=== PATIENT | female | born 2000 | race African-American/Black ===

== ENCOUNTER 2025-02-18 18:13 | Emergency (ER) | payer OTHER, SELFPAY ==
[2025-02-18 18:12] VITALS: BP 130/83; PULSE 77; RESP 20; TEMP 36.7; O2SAT 98
--- NOTE | 2025-02-18 18:15 | DI.CT_ITS ---
Exam(s) CT HEAD WO EXAM: CT HEAD WO CLINICAL HISTORY: Seizure. TECHNIQUE: Imaging Protocol: Axial computed tomography images with coronal and sagittal reformatted images were created and reviewed COMPARISON: No exams were available for comparison FINDINGS: Ventricles and Extra axial spaces: Normal in size and morphology for the patient's age. Hemorrhage: None. Cerebral parenchyma: No evidence of acute infarct or mass. Midline shift: None. Brainstem/Cerebellum: Normal. Calvarium: Normal. Visualized Paranasal sinuses:Clear. Mastoids: Clear. Soft Tissues: Unremarkable. ORBITS: Unremarkable. PITUITARY: Not enlarged. IMPRESSION: No acute intracranial process. RADIATION DOSE DELIVERED: 846.83mGy.cm Total DLP DATA REPOSITORY: All CT scans at this facility are submitted to the National Radiology Data Registry (NRDR) Dose Index Registry (DIR) with the [employer] (ACR). RADIATION OPTIMIZATION: All CT scans at this facility use at least one of these dose optimization te chniques: automated exposure control; mA and/or kV adjustment per patient size (includes targeted exa ms where dose is matched to clinical indication); or iterative reconstruction.
--- NOTE | 2025-02-18 18:15 | DI.RAD_ITS ---
Exam(s) XR CHEST 2V PA LATERAL EXAM: XR CHEST 2V PA LATERAL CLINICAL HISTORY: Seizure TECHNIQUE: 2D digital imaging was performed. Two views. COMPARISON: No exams were available for comparison FINDINGS: HEART: Normal size. Aorta: Not dilated. PULMONARY VASCULATURE: Normal. MEDIASTINUM: Unremarkable. LUNGS: Clear. PLEURAL SPACE: No pleural effusion or pneumothorax. BONE:Unremarkable for age. SOFT TISSUES: Unremarkable. IMPRESSION: No acute abnormality. DATA REPOSITORY: RADIATION DOSE DELIVERED:
--- NOTE | 2025-02-18 18:22 | W.ED.GENAD ---
Discharge Plan Disposition Patient Disposition: Home Condition: Stable Discharge Details Clinical Impression: Seizure Primary Care Provider: Rosaura,Local ED Provider: Marina Ferreira Home Meds and New Rx's Prescriptions: Continued levetiracetam 1,000 mg tablet 1,000 mg PO BID cholecalciferol (vitamin D3) [D3-2000] 50 mcg (2,000 unit) capsule 50 mcg PO DAILY biotin 2,500 mcg capsule 2,500 mcg PO DAILY Discharge Instructions Instructions: Seizures, Adult ED Additional Instructions: At this time your workup is unremarkable. You were given a dose of 1000 mg of Keppra in the IV today. Please continue to take your Keppra as previously scheduled. Return to the ER for any additional seizures or concerns. Follow up with primary care provider/neurologist in 3-5 days. Return to ED sooner if any worsening or concerns. Thank you for allowing us to care for you today. Please take Tylenol or Ibuprofen with food every 4-6 hours as needed for pain and swelling. Referrals: Primary Care Provider [Outside] Armida Hutton MD [ [facility] STAFF PHYSICIAN] - HPI General Mode of arrival: EMS. Date/Time Provider Initiated Documentation: 02/18/25 18:19. Limitations to Documentation: no limitations. Information obtained by: patient and EMS. HPI Narrative: 24-year-old female presents to the ER via EMS with a chief complaint of seizure which was unwitnessed. EMS reports she was locked in the bathroom for approximately an hour EMS arrived and broke the door down. She was sitting on the floor. She states that she does have a seizure disorder and has approximately 1 seizure a month. She reports recent URI type symptoms over the last couple of weeks. BGL on scene was 96. She takes Keppra 2000 mg a day. Initially she said she takes it twice a day and then states that she takes it once a day she took around 1230 today. Denies hitting her head that she knows of no headache no neck pain back pain. She reports that initially her feet were hurting her and they were numb. She is alert and oriented x 3 upon arrival. Initially on scene she was slightly confused per EMS, no incontinence of urine noted. No obvious injuries noted. Related Data Home Medications ?Medication ?Instructions ?Recorded ?Confirmed biotin 2,500 mcg capsule 2,500 mcg PO DAILY 02/18/25 02/18/25 cholecalciferol (vitamin D3) 50 50 mcg PO DAILY 02/18/25 02/18/25 mcg (2,000 unit) capsule (D3-1999) levetiracetam 1,000 mg tablet 1,000 mg PO BID 02/18/25 02/18/25 Allergies Allergy/AdvReac Type Severity Reaction Status Date / Time No Known Allergies Allergy Unverified 02/18/25 18:19 General Stated Complaint: Seizure QAMAR: 3 Review of Systems All systems reviewed & are unremarkable except as noted in HPI and below Neurologic Neurologic: Reports as per HPI, Reports confusion and Reports seizure-like activity Psychiatric Psychiatric: Reports confusion Exam Narrative Exam Narrative: General: Well Developed, Awake and Alert, conversant. Skin: Warm and Dry HEENT: Head: No palpable deformities, Normocephalic Eyes: Pupils PERRLA, EOM's intact. No periorbital eccymosis or step off Ears: Canal patent. Tympanic membranes are clear . No meredith's sign, no hemptympanum. Nose/Face: Atraumatic. Facial bones nontender to palpation and stable with manipulation. Mouth/Throat: No intraoral trauma. Teeth and mandible are intact. Neck: No midline tenderness, no step off, no deformity to palpation of C-spine. Trachea midline. Chest: No surface trauma. Nontender without crepitus or deformity. Lungs clear to ausculatation bilaterally. Heart: RRR, no rubs, murmurs or gallop. Abdomen: No abrasions, ecchymosis, or surface trauma. Nondistended. Nontender to palpation no guarding, rebound, or rigidity. Pelvis: Nontender to palpation and stable to compression. Femoral pulses strong and equal Extremities: no surface trauma. Sensation intact. Peripheral pulses intact and equal. Neuro: ANO x4, GCS 15, cranial nerves II through XII intact. Motor and sensory exam nonfocal. Reflexes are symmetric. Course Vital Signs Vital signs: Vital Signs Temperature 36.7 C 02/18/25 18:12 Pulse 77 02/18/25 18:12 Respiratory Rate 20 02/18/25 18:12 Blood Pressure 130/83 02/18/25 18:12 Pulse Oximetry 98 02/18/25 18:12 Temperature 36.7 C 02/18/25 18:12 Temperature Source Oral 02/18/25 18:12 Pulse 77 05/06/25 18:12 Respiratory Rate 20 02/18/25 18:12 Blood Pressure 130/83 02/18/25 18:12 Blood Pressure Position Supine 02/18/25 18:12 Pulse Oximetry 98 02/18/25 18:12 Oxygen Delivery Method Room Air 02/18/25 18:12 Oxygen Flow Rate 0 02/18/25 18:12 Medical Decision Making 24-year-old female presents to the ER via EMS with a chief complaint of seizure which was unwitnessed. EMS reports she was locked in the bathroom for approximately an hour EMS arrived and broke the door down. She was sitting on the floor. She states that she does have a seizure disorder and has approximately 1 seizure a month. She reports recent URI type symptoms over the last couple of weeks. BGL on scene was 96. She takes Keppra 2000 mg a day. Initially she said she takes it twice a day and then states that she takes it once a day she took around 1230 today. Denies hitting her head that she knows of no headache no neck pain back pain. She reports that initially her feet were hurting her and they were numb. She is alert and oriented x 3 upon arrival. Initially on scene she was slightly confused per EMS, no incontinence of urine noted. No obvious injuries noted. Workup ordered including CBC CMP urinalysis urine drug screen magnesium, fluid swab, head CT and chest x-ray. Will give 0.5 lorazepam p.o. 1gm keppra given IVPB. Labs are largely unremarkable no leukocytosis, small blood in urine no leukocytes no evidence of UTI. Negative urine drug screen. Fluid swab is pending at this time. Negative chest x-ray and head CT. Will discharge patient back to home will instruct to follow-up with PCP or neurologist return to the ER if this reoccurs. This text was generated using [employer] dictation system, please disregard any oddities of phrase or misspellings. Imaging Data Radiologic Study: Imaging: CT Scan Radiologist's impression: FINDINGS: Brain: There is no intracranial hemorrhage. There is no midline shift or space occupying mass. There is normal murphy-white matter differentiation without evidence of acute large vascular territorial infarct. There is no cerebral edema. There are no extra-axial fluid collections. The posterior fossa structures are unremarkable. The basal cisterns are patent. Cerebral ventricles: The ventricles are normal in position. No hydrocephalus. Paranasal sinuses: The visualized paranasal sinuses are well-aerated. There are no air fluid levels to suggest acute sinusitis. Mastoid air cells: The tympanomastoid air cells are normally aerated as visualized. Orbital cavities: The orbits are unremarkable as visualized. Pharynx: Prominent nasopharyngeal soft tissue consistent with the patient's age. Bones: No acute fracture. No suspicious osseous lesions. Soft tissues: The soft tissues are unremarkable. IMPRESSION: 1. No acute intracranial findings. 2. MRI of the brain should be considered as it is a more sensitive modality in the evaluation brain parenchymal pathology. Radiologic Study #2: Imaging: X-Ray Radiologist's impression: TECHNIQUE: Imaging protocol: Radiologic exam of the chest. Views: 2 views. COMPARISON: No relevant prior studies available. FINDINGS: Lungs: There is no pulmonary consolidation or mass. Pleural spaces: There is no evidence of pleural effusion or pneumothorax. Heart/Mediastinum: The cardiomediastinal silhouette is normal. Bones/joints: No acute fracture. No suspicious osseous lesions. IMPRESSION: No acute cardiopulmonary disease. Thank you for allowing us to participate in the care of your patient. Dictated and Authenticated by: Marleny Kim MD Lab Data Lab results reviewed: Yes I reviewed the patient's lab results. Labs: Laboratory Tests Range/Units 02/18/25 02/18/25 17:50 18:45 WBC (4.4-10.8) 10^3/uL 5.45 RBC (3.93-5.22) 10^6/uL 4.82 Hgb (11.2-15.7) g/dL 13.1 Hct (36.0-46.0) % 40.3 MCV (80-95) fL 84 MCH (27.0-33.0) pg 27.2 MCHC (32.0-36.0) % 32.5 RDW (11.7-14.6) % 14.1 Plt Count (130-400) 10^3/uL 258 MPV (8.0-11.0) fL 10.6 Immature Gran % % 0.2 Neutrophils % % 51.6 Lymphocytes % % 36.0 Monocytes % % 10.1 Eosinophils % % 1.7 Basophils % % 0.4 Nucleated RBC % (0.0-0.3) % 0.0 Absolute Neutrophils (1.2-6.7) 10^3/uL 2.82 Absolute Lymphocytes (1.2-3.4) 10^3/uL 1.96 Absolute Monocytes (0.1-0.8) 10^3/uL 0.55 Absolute Eosinophils (0.0-0.7) 10^3/uL 0.09 Absolute Basophils (0.0-0.2) 10^3/uL 0.02 Sodium (136-145) mmol/L 138 Potassium (3.5-5.1) mmol/L 4.1 Chloride (98-107) mmol/L 104 Carbon Dioxide (21.0-32.0) mmol/L 24.8 Anion Gap (3-11) mmol/L 9.2 BUN (7-18) mg/dL 10 Creatinine (0.55-1.02) mg/dL 0.8 Est GFR (CKD-EPI 2020) (mL/min/1.73m2) 106.77 Glucose (74-106) mg/dL 97 Calcium (8.5-10.1) mg/dL 9.8 Magnesium (1.8-2.4) mg/dL 1.8 Total Bilirubin (0.2-1.0) mg/dL 0.3 AST (15-37) U/L 36 ALT (14-59) U/L 67 H Alkaline Phosphatase (46-116) U/L 77 Total Protein (6.4-8.2) g/dL 8.1 Albumin (3.4-5.0) g/dL 4.2 TSH (0.36-3.74) uIU/mL 1.14 Urine Color (Yellow) Yellow Urine Clarity (Clear) Clear Urine pH (5-8) 5.5 Ur Specific [place] (1.005-1.025) 1.025 Urine Protein (Neg-Trace) mg/dL Negative Urine Ketones (Negative) mg/dL Negative Urine Blood (Negative) Small H Urine Nitrite (Negative) Negative Urine Bilirubin (Negative) Negative Urine Urobilinogen (Up to 0.2) mg/dL 0.2 Ur Leukocyte Esterase (Negative) Negative Urine RBC (0-2) HPF 5-10 H Urine WBC (0-5) HPF 3-5 Ur Epithelial Cells (Negative) HPF Moderate Urine Crystals (Negative) HPF Negative Urine Bacteria (Negative) HPF Moderate Urine Casts (Negative) LPF Negative Urine Mucus (Negative) Negative Urine Other (Negative) Rare Yeast Ur Culture Indicated? No Urine Glucose (Negative) mg/dL Negative Urine Opiates Screen (Negative) Negative Urine Methadone Screen (Negative) Negative Ur Barbiturates Screen (Negative) Negative Ur Tricyclics Screen (Negative) Negative Ur Amphetamines Screen (Negative) Negative U Benzodiazepines Scrn (Negative) Negative Urine Cocaine Screen (Negative) Negative Ur THC Screen (Negative) Negative Quality:SDOH Health Related Social Needs: No Data to Display PFSH All Active Problems (Updated 02/18/25 @ 20:06 by Marina Ferreira NP) Seizure (Acute) Social History Smoking/Tobacco Use Status: Never Smoking risk assessment performed?: Yes Alcohol Intake: never Drug use: Never Housing: other Do you feel safe at home: Yes Do you feel safe in your relationship?: Yes
[2025-02-18 18:32] LABS: Abs Immature Grans 0.01 10^3/uL (0.0-0.06); Absolute Basophil Count 0.02 10^3/uL (0.0-0.2); Absolute Eosinophil Count 0.09 10^3/uL (0.0-0.7); Absolute Lymphocyte Count 1.96 10^3/uL (1.2-3.4); Absolute Monocyte Count 0.55 10^3/uL (0.1-0.8); Absolute Neutrophil Count 2.82 10^3/uL (1.2-6.7); Basophils % 0.4 %; Eosinophils % 1.7 %; HCT 40.3 % (36.0-46.0); HGB 13.1 g/dL (11.2-15.7); Immature Grans % 0.2 %; MCH 27.2 pg (27.0-33.0); MCHC 32.5 % (32.0-36.0); MCV 84 fL (80-95); MPV 10.6 fL (8.0-11.0); Monocytes % 10.1 %; Neutrophils % 51.6 %; Platelet Count 258 10^3/uL (130-400); RBC 4.82 10^6/uL (3.93-5.22); RDW 14.1 % (11.7-14.6); RDW-SD 42.8 fL; WBC 5.45 10^3/uL (4.4-10.8)
[2025-02-18] MEDS: LORazepam 0.5 MG TAB PO (18:33)
[2025-02-18] MEDS: levETIRAcetam 1,000 MG in Normal Saline 100 ML 400 MG IVPB (18:57)
[2025-02-18 18:59] LABS: ALT 67 U/L (14-59); AST 36 U/L (15-37); Albumin 4.2 g/dL (3.4-5.0); Alkaline Phosphatase 77 U/L (46-116); Anion Gap 9.2 mmol/L (3-11); BUN 10 mg/dL (7-18); Bilirubin, Total 0.3 mg/dL (0.2-1.0); CO2 24.8 mmol/L (21.0-32.0); CREATININE 0.8 mg/dL (0.55-1.02); Calcium 9.8 mg/dL (8.5-10.1); Chloride 104 mmol/L (98-107); Estimated GFR 106.77 (mL/min/1.73m2); Glucose 97 mg/dL (74-106); Magnesium 1.8 mg/dL (1.8-2.4); Potassium 4.1 mmol/L (3.5-5.1); Sodium 138 mmol/L (136-145); TSH (W/Ref FT4) 1.14 uIU/mL (0.36-3.74); Total Protein 8.1 g/dL (6.4-8.2)
[2025-02-18 19:11] LABS: Bilirubin Negative (Negative); Blood Small (Negative); Clarity Clear (Clear); Glucose Negative (Negative); Ketones Negative (Negative); Leukocyte Esterase Negative (Negative); Nitrite Negative (Negative); Specific Gravity 1.025 (1.005-1.025); Urobilinogen 0.2 mg/dL (Up to 0.2); pH 5.5 (5-8)
[2025-02-18 19:21] LABS: *AMPHETAMINES SCREEN URINE Negative (Negative); *BARBITURATES SCREEN URINE Negative (Negative); *BENZODIAZEPINES SCREEN URINE Negative (Negative); Cannabinoids THC Negative (Negative); Cocaine Screen,Urine Negative (Negative); Epithelial Cells Moderate HPF (Negative); METHADONE URINE SCREEN Negative (Negative); OPIATES URINE SCREEN Negative (Negative)
[2025-02-18 19:22] LABS: Bacteria Moderate HPF (Negative); C & S Indicated? No; Casts Negative LPF (Negative); Crystals Negative HPF (Negative); Mucus Negative (Negative); Other Cells Rare Yeast (Negative)
[2025-02-18 19:23] LABS: Tricyclic Antidepressants Negative (Negative)
--- NOTE | 2025-02-18 20:01 | DI.VRAD_ITS ---
PROCEDURE INFORMATION: Exam: CT Head Without Contrast Exam date and time: 02/18/2025 7:39 PM Age: 24 years old Clinical indication: Other: Seizure TECHNIQUE: Imaging protocol: Computed tomography of the head without contrast. COMPARISON: No relevant prior studies available. FINDINGS: Brain: There is no intracranial hemorrhage. There is no midline shift or space occupying mass. There is normal murphy-white matter differentiation without evidence of acute large vascular territorial infarct. There is no cerebral edema. There are no extra-axial fluid collections. The posterior fossa structures are unremarkable. The basal cisterns are patent. Cerebral ventricles: The ventricles are normal in position. No hydrocephalus. Paranasal sinuses: The visualized paranasal sinuses are well-aerated. There are no air fluid levels to suggest acute sinusitis. Mastoid air cells: The tympanomastoid air cells are normally aerated as visualized. Orbital cavities: The orbits are unremarkable as visualized. Pharynx: Prominent nasopharyngeal soft tissue consistent with the patient's age. Bones: No acute fracture. No suspicious osseous lesions. Soft tissues: The soft tissues are unremarkable. IMPRESSION: 1. No acute intracranial findings. 2. MRI of the brain should be considered as it is a more sensitive modality in the evaluation brain parenchymal pathology. Dictated and Authenticated by: Marleny Kim MD. Orderin Hanna Gray MD
--- NOTE | 2025-02-18 20:02 | DI.VRAD_ITS ---
PROCEDURE INFORMATION: Exam: XR Chest Exam date and time: 02/18/2025 7:50 PM Age: 24 years old Clinical indication: Other: Seizure TECHNIQUE: Imaging protocol: Radiologic exam of the chest. Views: 2 views. COMPARISON: No relevant prior studies available. FINDINGS: Lungs: There is no pulmonary consolidation or mass. Pleural spaces: There is no evidence of pleural effusion or pneumothorax. Heart/Mediastinum: The cardiomediastinal silhouette is normal. Bones/joints: No acute fracture. No suspicious osseous lesions. IMPRESSION: No acute cardiopulmonary disease. Dictated and Authenticated by: Marleny Kim MD. Orderin Hanna Gray MD
[2025-02-18 20:38] VITALS: PULSE 70; RESP 18
[2025-02-18 20:44] VITALS: BP 117/62; PULSE 82; RESP 16; TEMP 36.6; O2SAT 100
[2025-02-18 21:24] LABS: COVID-19 PCR Negative (Negative); Influenza A PCR Negative (Negative); Influenza B PCR Negative (Negative); RSV PCR Negative (Negative)
[2025-02-18 21:25] LABS: Source Nasopharynx
== END 2025-02-18 20:48 | disposition home or self-care (01) ==
LOC: ER 20:27
PROVIDERS: Emergency Provider Registered Nurse Emergency; PCP Registered Nurse Emergency
DX: G40.909 Epilepsy, unspecified, not intractable, without status epilepticus (principal)
CPT/HCPCS: 80053; 80307; 81025; 87637; 96365; 99285; 70450; 71046; 81003; 81015; 83735; 84443; 85025; 99284; J1953